=== PATIENT | female | born 1990 | race African-American/Black ===

== ENCOUNTER 2016-05-14 09:38 | Emergency (ER) | payer OTHER ==
[~2016-05-14] VITALS: Ht 152.4 cm; Wt 83.9 kg
[~2016-05-14 09:38] MED LIST: ADVAIR 100-501 EACH INH; ALBUTEROL2.5 MG/31 INH; APAP500 PO; CILOXAN5 ML OP; DERMOPLAST SPRA56 ML; IBUPROFEN 600600 M1 PO; LANOLIN56 GM; LOCOID 0.1% CRE15 GM TP; PREDNISONE 20 M20 MG PO; PREDNISONE50 MG PO; PRENATAL PO; PROAIR HFA8.5 GM INH; PROVENTIL HFA6.7 G1 INH; SINGULAIR 10 MG10 M1 PO; TUCKS MEDICATE1 EAC1; VENTOLIN HFA 1818 GM INH; ZOFRAN4 MG PO
[2016-05-14] MEDS ORDERED: SERTRALINE HCL50 MG PO (09:58)
[2016-05-14] MEDS ORDERED: MOBIC7.5 MG PO (12:42)
== END 2016-05-14 13:10 | disposition home or self-care (01) ==
LOC: ER 09:38
DX: S09.90XA Unspecified injury of head, initial encounter (principal); J45.909 Unspecified asthma, uncomplicated; F17.210 Nicotine dependence, cigarettes, uncomplicated; V47.5XXA Car driver injured in collision with fixed or stationary object in traffic accident, initial encounter; Y93.I9 Activity, other involving external motion; Y92.410 Unspecified street and highway as the place of occurrence of the external cause; Y99.8 Other external cause status